=== PATIENT | male | born 1990 | race Caucasian/White ===

== ENCOUNTER 2020-11-09 21:08 | Emergency (ER) | payer MEDICAID ==
[~2020-11-09] VITALS: Ht 180.3 cm; Wt 95.0 kg
[2020-11-09 21:20] VITALS: BP 160/100
[2020-11-09] MEDS ORDERED: LORAZEPAM 1MG TABLET PO ONE (23:45)
== END 2020-11-10 03:16 | disposition home or self-care (01) ==
LOC: ER 21:08
DX: F41.9 Anxiety disorder, unspecified (principal); F15.10 Other stimulant abuse, uncomplicated; R41.82 Altered mental status, unspecified; R00.0 Tachycardia, unspecified
CPT/HCPCS: 93005; 99283